=== PATIENT | male | born 1965 | race Caucasian/White ===

== ENCOUNTER 2023-08-18 04:25 | Emergency (ER) | payer OTHER ==
[~2023-08-18] VITALS: Ht 182.9 cm; Wt 83.9 kg
[2023-08-18 05:10] LABS: BASOPHILS # (AUTO) 0.1 K/UL (0.0-0.2); BASOPHILS % (AUTO) 0.6 % (0.0-2.0); EOSINOPHILS # (AUTO) 0.1 K/uL (0.0-0.7); EOSINOPHILS % (AUTO) 0.7 % (0.0-7.0); HEMATOCRIT 39.4 % (36.7-47.1); HEMOGLOBIN 13.7 g/dL (12.5-16.3); LYMPHOCYTES # (AUTO) 1.3 K/uL (0.8-4.8); LYMPHOCYTES % (AUTO) 6.5 % (20.5-51.5); MEAN CORPUSCULAR HEMOGLOBIN 32.1 uug (23.8-33.4); MEAN CORPUSCULAR HGB CONC 35 g/dL (32.5-36.3); MONOCYTES # (AUTO) 2.2 K/uL (0.1-1.30); NEUTROPHILS # (AUTO) 16.1 K/uL (1.8-8.9); NEUTROPHILS % (AUTO) 81.2 % (38.5-71.5); PLATELET COUNT (AUTO) 424 K/uL (152-348); RED BLOOD CELL COUNT(AUTO) 4.28 MIL/uL (4.06-5.63); RED CELL DISTRIBUTION WIDTH 13.8 % (12.1-16.2); WHITE BLOOD COUNT (AUTO) 19.8 K/uL (3.6-10.2)
[2023-08-18 05:11] LABS: DIFFERENTIAL COMMENT 1
[2023-08-18] MEDS ORDERED: AZITHROMYCIN IV 500 MG in IV DEXTROSE 5% 250 ML IV ONE (05:30)
[2023-08-18] MEDS ORDERED: CEFTRIAXONE 1 G in IV DEXTROSE 5% 50 ML IV ONE (05:30)
[2023-08-18] MEDS ORDERED: IV NORMAL SALINE 1000 ML BAG IV ONE (05:30)
[2023-08-18 05:32] LABS: CALCIUM 9.6 mg/dL (8.5-10.1); CARBON DIOXIDE 28 mmol/L (21-32); CHLORIDE 98 mmol/L (98-107); CREATININE 0.9 mg/dL (0.6-1.3); GLUCOSE 116 mg/dL (74-106); POTASSIUM 4.1 mmol/L (3.5-5.1); SODIUM SERUM 135 mmol/L (136-145); UREA NITROGEN, BLOOD 15 mg/dL (7-18)
[2023-08-18 05:45] LABS: ALANINE AMINOTRANSFERASE 129 U/L (16-63); ALBUMIN 2.7 g/dL (3.4-5.0); ALKALINE PHOSPHATASE 355 U/L (50-136); ASPARTATE AMINOTRANSFERASE 33 U/L (15-37); BILIRUBIN,DIRECT 0.7 mg/dL (0.0-0.2); BILIRUBIN,TOTAL 1.2 mg/dL (0.2-1.0); NT-PRO BNP 104 pg/mL (0-125); TOTAL PROTEIN, SERUM 8.2 g/dL (6.4-8.2)
[2023-08-18] MEDS ORDERED: SWABABLE VALVE TRANSFER SET EA MC ONE (05:54)
[2023-08-18] MEDS ORDERED: IV NORMAL SALINE 250 ML IV ONE (05:54)
[2023-08-18] MEDS ORDERED: IOHEXOL 350 100 ML INFUS..BTL ONE (05:54)
[2023-08-18] MEDS ORDERED: AZITHROMYCIN 500MG/ D5W 250ML IVPB **ER PYXIS ONLY IV ONE (06:06)
[2023-08-18] MEDS ORDERED: CEFTRIAXONE /D5W 50ML IVPB **ER PYXIS IV ONE (06:06)
[2023-08-18] MEDS ORDERED: CYCLOBENZAPRINE HCL 10 MG TABLET PO ONE (06:45)
[2023-08-18] MEDS ORDERED: CYCLOBENZAPRINE HCL 10 MG TABLET ONE (06:47)
[2023-08-18] MEDS ORDERED: AMOX-430 PO (06:50)
[2023-08-18] MEDS ORDERED: ALBU6.7H9 INH (06:50)
[2023-08-18] MEDS ORDERED: METRONIDAZOLE 500 MG/NS 100ML 500 MG in PREMIXED 1 EACH IV STA (08:26)
[2023-08-18] MEDS ORDERED: ONDANSETRON 4 MG/2 ML VIAL IV ONE (08:30)
[2023-08-18] MEDS ORDERED: MORPHINE SULFATE 4 MG/1 ML DISP.SYRIN IV ONE (08:30)
[2023-08-18] MEDS ORDERED: METRONIDAZOLE 500 MG/NS 100ML 100 ML IV ONE (08:33)
[2023-08-18] MEDS ORDERED: ONDANSETRON 4 MG/2 ML VIAL ONE (08:34)
[2023-08-18] MEDS ORDERED: MORPHINE SULFATE 4 MG/1 ML DISP.SYRIN ONE (08:34)
[2023-08-18] MEDS ORDERED: ACETAMINOPHEN 325 MG TABLET PO ONE (13:45)
[2023-08-18] MEDS ORDERED: ACETAMINOPHEN 325 MG TABLET ONE (14:08)
[2023-08-18 14:38] VITALS: BP 149/101; TEMP 100.5; O2SAT 98
== END 2023-08-18 15:24 | disposition short-term general hospital (02) ==
LOC: ER 04:40
DX: A41.9 Sepsis, unspecified organism (principal); R00.0 Tachycardia, unspecified; D72.829 Elevated white blood cell count, unspecified; J18.9 Pneumonia, unspecified organism; K81.9 Cholecystitis, unspecified; D75.839 Thrombocytosis, unspecified; E80.6 Other disorders of bilirubin metabolism; R79.1 Abnormal coagulation profile; Z88.1 Allergy status to other antibiotic agents; Z20.822 Contact with and (suspected) exposure to COVID-19
CPT/HCPCS: 99291; 93308; 96365; 71275; 76705; 96375; 96367; 87426; 87804; 80076; 80048; 83880; 83690; 85025; 84145; 85379; 85730; 87040 ×2; 84484 ×2; 93005; 96368; 83605; J0456; J0696; J3490; J2405; Q9967; J2270; J7040 ×2; A4663